=== PATIENT | male | born 1965 | race Two or more races ===

== ENCOUNTER 2022-07-27 00:07 | Emergency (ER) | payer MEDICAID, OTHER ==
[~2022-07-27] VITALS: Ht 182.9 cm; Wt 90.7 kg
[2022-07-27 00:16] VITALS: BP 110/66
--- NOTE | 2022-07-27 00:46 | NUR ---
NATHANAEL Chilel FROM [facility] FOR WITHNESSED SEIZURE . PATIENT IS ALTERED AND MUMBLING WORDS W/ HX OF SEIZURE. PLACED IN BED 1 ER ON MONITOR.
--- NOTE | 2022-07-27 01:20 | NUR ---
[facility] CALLED FOR TRANSPORT. ETA 90-120 MINUTES.
--- NOTE | 2022-07-27 02:09 | NUR ---
report given to Karime at the facility
--- NOTE | 2022-07-27 02:13 | NUR ---
[facility] AT BED SIDE
== END 2022-07-27 04:17 | disposition home or self-care (01) ==
LOC: ER 00:10
DX: R56.9 Unspecified convulsions (principal); Z88.0 Allergy status to penicillin; Z88.1 Allergy status to other antibiotic agents; Z88.2 Allergy status to sulfonamides; Z88.5 Allergy status to narcotic agent